=== PATIENT | female | born 1990 | race Caucasian/White ===

== ENCOUNTER 2020-11-18 07:58 | Emergency (ER) | payer OTHER, SELFPAY ==
[~2020-11-18] VITALS: Ht 160 cm; Wt 63.5 kg
[2020-11-18 08:01] VITALS: BP 129/82; Ht 160 cm; Wt 63.5 kg
[2020-11-18 09:55] LABS: BASOPHIL % 1.2 % (0.2-1.3); PLATELET COUNT 203 x10^3mcL (179-408)
[2020-11-18 09:58] LABS: CALCIUM 8.2 mg/dL (8.5-10.1); CARBON DIOXIDE 28.5 mmol/L (21-32); CHLORIDE SERUM 106 mmol/L (98-107); CREATININE SERUM 0.6 mg/dL (0.6-1.0); GFR1 > 60 mL/min; GLUCOSE SERUM 92 mg/dL (74-106); POTASSIUM SERUM 3.7 mmol/L (3.5-5.1); SODIUM SERUM 140 mmol/L (136-145)
[2020-11-18 10:01] LABS: AMPHETAMINE QUAL UR NONE DETECTED (See below)
[2020-11-18 10:02] LABS: ALBUMIN 3.9 g/dL (3.4-5.0); ALKALINE PHOSPHATASE 68 U/L (46-116); ALT/SGPT 26 U/L (14-59); AST/SGOT 17 U/L (15-37); BILIRUBIN TOTAL 0.3 mg/dL (0.20-1.00); LIPASE 142 IU/L (73-393); TOTAL PROTEIN, SERUM 8.1 g/dL (6.4-8.2)
[2020-11-18 10:32] LABS: RED CELL DISTRIBUTION WIDTH 14.8 % (12.3-17.7)
== END 2020-11-18 12:30 | disposition home or self-care (01) ==
LOC: ED 07:58
PROVIDERS: Emergency Medicine
DX: R00.2 Palpitations (principal); R07.89 Other chest pain; R06.02 Shortness of breath; R42 Dizziness and giddiness
CPT/HCPCS: 85378; G0480